=== PATIENT | female | born 1980 | race Caucasian/White ===

== ENCOUNTER 2022-06-02 19:46 | Emergency (ER) | payer OTHER, SELFPAY ==
--- NOTE | ~2022-06-02 | XR_ITS ---
EXAMINATION: XR CHEST CLINICAL INFORMATION: Chest pain COMPARISON: None TECHNIQUE: Frontal view of the chest was obtained. FINDINGS: No significant abnormality is noted involving the heart, lungs, mediastinum, bony thorax or soft tissues. XR/XR chest 1V IMPRESSION: Unremarkable examination.
--- NOTE | ~2022-06-02 | US_ITS ---
EXAMINATION: US ABDOMEN LIMITED CLINICAL INFORMATION: Abdominal pain. COMPARISON: None TECHNIQUE: Real-time imaging of the right upper quadrant abdominal viscera. FINDINGS: Gallbladder is physiologically distended and contains a small amount of sludge near the fundus. No gallstones are seen. Gallbladder wall thickness is within normal limits. Common bile duct measures 0.4 cm in diameter. Sonographic Dai sign is reportedly negative. US/US abdomen limited IMPRESSION: Small amount of gallbladder sludge without additional acute findings.
--- NOTE | 2022-06-02 20:02 | ECG_ITS ---
Test Reason : ABD/CP Blood Pressure : / mmHG Vent. Rate : 102 BPM Atrial Rate : 102 BPM P-R Int : 142 ms QRS Dur : 078 ms QT Int : 372 ms P-R-T Axes : 023 014 024 degrees QTc Int : 484 ms Sinus tachycardia Otherwise normal ECG No previous ECGs available Referred By: Christina Boston Electronically Signed By:ROB POWELL MD
--- NOTE | 2022-06-02 20:04 | ED.CHESTPAIN ---
HPI - Chest Pain General Chief Complaint: General Medical Stated Complaint: chest pain Time Seen by Provider: 06/02/22 19:51 History of Present Illness HPI narrative: Patient is a 42-year-old female with a long history of alcohol and heroin abuse. Presents today with having chest tightness. It has been ongoing for the last month. Patient drinks 3-4 alcoholic beverages per day. In addition to using heroin on a daily basis. Patient injects of medications. Patient complaining agitation. The last time she used heroin was this afternoon. The last time she drank alcohol was just prior to arrival. Patient claims she drank 1-2 drinks today less than usual. Patient denies any coughing congestion upper respiratory symptoms. Patient is not suicidal not homicidal. Related Data Allergies Allergy/AdvReac Type Severity Reaction Status Date / Time amoxicillin [AMOXICILLIN] Allergy Unknown RASH Unverified 05/09/20 17:50 Review of Systems Review of Systems: Positive chest tightness Yes all other systems are reviewed and are negative PMFSH Past Medical History Attestation statement: The following information was validated with the patient. Social History Social History Alcohol intake: current Patient Tobacco Use Status: Current everyday Tobacco user Use of substances other than those prescribed or required for medical reasons: Yes Substance Use Type: Heroin Substance Use Frequency: Daily Advance Directives: No Advance Directives Information Provided: No Patient : No Physical Exam Vital Signs: Vital Signs: Last Vital Signs Temp 98.2 F 06/03/22 00:25 Pulse 88 06/03/22 00:25 Resp 10 L 06/03/22 00:25 BP 157/97 H 06/03/22 00:25 Pulse Ox 97 06/03/22 00:25 O2 Del Method 06/03/22 00:25 BMI result Body Mass Index 43.0 Appearance: Alert. Oriented X3. No acute distress. Eyes: Pupils equal, round and reactive to light. ENT: Pharynx normal. Neck: Normal inspection. Neck supple. No lymph nodes noted. No crepitus CVS: Normal heart rate and rhythm. Pulses normal. Normal S1 and S2 Respiratory: No respiratory distress. Breath sounds normal. No Wheezing. No rales Abdomen: Soft and nontender. No rigidity. No distention. good BS x4 Skin: Skin warm and dry. Normal skin color. Normal skin turgor. Extremities: No lower extremity edema. Neurovascular intact to all extremities. No Lacerations. No Rash Neuro: Oriented X 3. No motor deficit. No sensory deficit. Moving all extermities. No slurred speech MDM - Chest Pain MDM Narrative Medical decision making narrative: Patient's symptoms atypical for ACS. She is larger in size but is not diabetic no high blood pressure no high cholesterol not a smoker never had a heart attack. Patient symptom has been ongoing the troponin was negative. Her EKG showed a sinus pattern heart rate is 100 NE QRS QT within normal limits is no acute ST segment elevation. Patient is in no distress. Positive history of polysubstance abuse. Care team involved been giving patient advice on detox. Chest x-ray showed no pneumonia no pneumothorax. No risk factors for pulmonary emboli. Patient is in stable condition. Ultrasound showed no gross evidence cholecystitis. Patient has elevated LFTs likely related to fatty liver. Medical Records Data Attestation: I reviewed the patient's medical records. Lab Data Attestation: I reviewed the patient's lab results. Result diagrams: 06/02/22 22:00 06/02/22 22:00 Labs: Lab Results 06/02/22 06/02/22 06/02/22 Range/Units 21:02 21:19 21:19 WBC (4.8-10.8) X10*3/uL RBC (4.20-5.50) X10*6/uL Hgb (12.0-16.0) g/dl Hct (37.0-47.0) % MCV (80.0-98.0) fL MCH (27.0-33.0) pg MCHC (31.0-35.0) g/dl RDW (11.0-16.0) % Plt Count (160-400) X10*3/uL MPV (9.4-12.3) fL Immature Gran % (Auto) (0.0-0.4) % Neut % (Auto) (45-73) % Lymph % (Auto) (20-40) % [place] % (Auto) (2-11) % Eos % (Auto) (0-4) % Baso % (Auto) (0-2) % Lymph # (Auto) (1.2-4.9) X10*3/uL [place] # (Auto) (0.1-1.2) X10*3/uL Eos # (Auto) (0.0-0.4) X10*3/uL Baso # (Auto) (0.0-0.2) X10*3/uL Abs Immat Gran (auto) (0.00-0.03) X10*3/uL Absolute Neuts (auto) (2.0-8.3) x10*3/uL Absolute Nucleated RBC (0.0-0.012) X10*3/uL Nucleated RBC % (auto) (0.0-0.2) /100WBC Sodium (135-145) mmol/L Potassium (3.3-5.1) mmol/L Chloride (96-108) mmol/L Carbon Dioxide (22-29) mmol/L Anion Gap (12-20) BUN (9-16) mg/dL Creatinine (0.5-1.4) mg/dL Estim Creat Clear Calc Estimated GFR Random Glucose (60-115) mg/dL Calcium (8.4-10.2) mg/dL Total Bilirubin (0.0-1.0) mg/dL Direct Bilirubin (0.0-0.5) mg/dL AST (5-31) U/L ALT (0-31) U/L Alkaline Phosphatase (39-117) U/L Troponin I High Sens (<3.5-17.0) ng/L Total Protein (6.5-8.0) g/dL Albumin (3.5-5.0) g/dL Lipase (8-78) U/L Beta HCG, Quant mIU/mL Urine Color Dark Yellow Urine Appearance Cloudy Urine pH 7.5 (5.0-9.0) Ur Specific Rachel 1.025 (1.005-1.025) Urine Protein 30 (1+) H (Neg-Trace) mg/dL Urine Glucose (UA) Negative (Negative) mg/dL Urine Ketones Trace (Negative) mg/dL Urine Blood Negative (Negative) Urine Nitrite Negative (Negative) Ur Leukocyte Esterase Trace H (Negative) Urine RBC 3-5 H (0-2) /HPF Urine WBC 0-5 (0-5) /HPF Ur Squamous Epith Cells 11-20 (0-2) /HPF Urine Bacteria Trace (None Seen) Hyaline Casts 3-5 (0-2) /LPF Urine Opiates Screen POSITIVE H (Not Detect) Urine Fentanyl Screen POSITIVE H (Not Detect) Ur Barbiturates Screen Not Detected (Not Detect) Ur Phencyclidine Scrn Not Detected (Not Detect) Ur Amphetamines Screen Not Detected (Not Detect) U Benzodiazepines Scrn Not Detected (Not Detect) Urine Cocaine Screen Not Detected (Not Detect) U Marijuana (THC) Screen Not Detected (Not Detect) Ethyl Alcohol mg/dL COVID-19 ([facility]) Negative (Negative) COVID-19 Clin Com See Note 06/02/22 06/02/22 06/02/22 Range/Units 22:00 22:00 22:00 WBC 8.1 (4.8-10.8) X10*3/uL RBC 3.53 L (4.20-5.50) X10*6/uL Hgb 10.5 L (12.0-16.0) g/dl Hct 34.2 L (37.0-47.0) % MCV 96.9 (80.0-98.0) fL MCH 29.7 (27.0-33.0) pg MCHC 30.7 L (31.0-35.0) g/dl RDW 17.6 H (11.0-16.0) % Plt Count 381 (160-400) X10*3/uL MPV 9.8 (9.4-12.3) fL Immature Gran % (Auto) 0.2 (0.0-0.4) % Neut % (Auto) 82.2 H (45-73) % Lymph % (Auto) 10.5 L (20-40) % [place] % (Auto) 6.9 (2-11) % Eos % (Auto) 0.1 (0-4) % Baso % (Auto) 0.1 (0-2) % Lymph # (Auto) 0.9 L (1.2-4.9) X10*3/uL [place] # (Auto) 0.6 (0.1-1.2) X10*3/uL Eos # (Auto) 0.0 (0.0-0.4) X10*3/uL Baso # (Auto) 0.0 (0.0-0.2) X10*3/uL Abs Immat Gran (auto) 0.02 (0.00-0.03) X10*3/uL Absolute Neuts (auto) 6.6 (2.0-8.3) x10*3/uL Absolute Nucleated RBC 0.000 (0.0-0.012) X10*3/uL Nucleated RBC % (auto) 0.0 (0.0-0.2) /100WBC Sodium 136 (135-145) mmol/L Potassium 4.5 (3.3-5.1) mmol/L Chloride 95 L (96-108) mmol/L Carbon Dioxide 30 H (22-29) mmol/L Anion Gap 16 (12-20) BUN 3 L (9-16) mg/dL Creatinine 0.67 (0.5-1.4) mg/dL Estim Creat Clear Calc 152.8 Estimated GFR > 60 Random Glucose 115 (60-115) mg/dL Calcium 9.4 (8.4-10.2) mg/dL Total Bilirubin 0.9 (0.0-1.0) mg/dL Direct Bilirubin 0.4 (0.0-0.5) mg/dL AST 65 H (5-31) U/L ALT 36 H (0-31) U/L Alkaline Phosphatase 144 H (39-117) U/L Troponin I High Sens < 3.5 (<3.5-17.0) ng/L Total Protein 7.4 (6.5-8.0) g/dL Albumin 3.6 (3.5-5.0) g/dL Lipase 7 L (8-78) U/L Beta HCG, Quant < 2 mIU/mL Urine Color Urine Appearance Urine pH (5.0-9.0) Ur Specific Rachel (1.005-1.025) Urine Protein (Neg-Trace) mg/dL Urine Glucose (UA) (Negative) mg/dL Urine Ketones (Negative) mg/dL Urine Blood (Negative) Urine Nitrite (Negative) Ur Leukocyte Esterase (Negative) Urine RBC (0-2) /HPF Urine WBC (0-5) /HPF Ur Squamous Epith Cells (0-2) /HPF Urine Bacteria (None Seen) Hyaline Casts (0-2) /LPF Urine Opiates Screen (Not Detect) Urine Fentanyl Screen (Not Detect) Ur Barbiturates Screen (Not Detect) Ur Phencyclidine Scrn (Not Detect) Ur Amphetamines Screen (Not Detect) U Benzodiazepines Scrn (Not Detect) Urine Cocaine Screen (Not Detect) U Marijuana (THC) Screen (Not Detect) Ethyl Alcohol < 10 mg/dL COVID-19 ([facility]) (Negative) COVID-19 Clin Com Discharge Plan Discharge Clinical Impression: Chest pain, Substance abuse, Fatty liver Instructions: Chest Pain (ED), Polysubstance Abuse (ED) Additional Instructions: Please stop using recreational drugs. Closely follow-up with detox. Please follow-up with cardiology as well. Very small risk of ACS. Referrals: Amandeep Caal MD [Physician] -
[2022-06-02 20:14] VITALS: BP 135/105; BP 154/95; PULSE 116; PULSE 99; RESP 12; TEMP 36.7; O2SAT 98; O2SAT 99; BMI 43.0
[2022-06-02] MEDS: LORazepam 1 MG TABLET PO (20:21)
[2022-06-02 21:13] VITALS: BP 149/76; PULSE 96; RESP 18; TEMP 36.4; O2SAT 96
[2022-06-02 21:19] LABS: COVID-19 Test Negative (Negative)
[2022-06-02 21:25] LABS: Appearance Urine Cloudy; Color Urine Dark Yellow; Glucose Urine UA Negative (Negative); Leukocyte Esterase Urine Trace (Negative); Nitrite Urine Negative (Negative); PH 7.5 (5.0-9.0); Specific Gravity - Urine 1.025 (1.005-1.025); UMIC TRIGGER UACC YES; Urine Blood Negative (Negative); Urine Ketones Trace mg/dL (Negative); Urine Protein 30 (1+) mg/dL (Neg-Trace)
[2022-06-02 21:30] LABS: Bacteria Urine Trace (None Seen); WBC Urine 0-5 /HPF (0-5)
[2022-06-02 21:39] LABS: Amphetamine Screen Urine Not Detected (Not Detect); Barbiturates, Urine Not Detected (Not Detect); Benzodiazepines Screen Urine Not Detected (Not Detect); Cannabinoid Screen Urine Not Detected (Not Detect); Cocaine Screen Urine Not Detected (Not Detect); Fentanyl, urine POSITIVE (Not Detect); Opiate Screen Urine POSITIVE (Not Detect); Phencyclidine Screen Urine Not Detected (Not Detect)
[2022-06-02 22:07] LABS: MANUAL DIFF FLAG NO
[2022-06-02 22:12] LABS: Basophils Percent Auto 0.1 % (0-2); Eosinophils Percent Auto 0.1 % (0-4); Hematocrit 34.2 % (37.0-47.0); Hemoglobin 10.5 g/dl (12.0-16.0); Imm Gran Abs Auto 0.02 X10*3/uL (0.00-0.03); Imm Gran Pct Auto 0.2 % (0.0-0.4); Lymphocytes Absolute Auto 0.9 X10*3/uL (1.2-4.9); Lymphocytes Percent Auto 10.5 % (20-40); Mean Corpuscular HGB Conc 30.7 g/dl (31.0-35.0); Mean Corpuscular Hemoglobin 29.7 pg (27.0-33.0); Mean Corpuscular Volume 96.9 fL (80.0-98.0); Mean Platelet Volume 9.8 fL (9.4-12.3); Monocytes Absolute Auto 0.6 X10*3/uL (0.1-1.2); Monocytes Percent Auto 6.9 % (2-11); Neutrophils Absolute Auto 6.6 x10*3/uL (2.0-8.3); Neutrophils Percent Auto 82.2 % (45-73); Platelet Count 381 X10*3/uL (160-400); Red Blood Count 3.53 X10*6/uL (4.20-5.50); Red Cell Distribution Width 17.6 % (11.0-16.0); White Blood Count 8.1 X10*3/uL (4.8-10.8)
[2022-06-02 22:13] VITALS: BP 156/92; PULSE 101; RESP 18; TEMP 36.4; O2SAT 98
[2022-06-02 22:33] LABS: Alanine Aminotransferase 36 U/L (0-31); Albumin Level 3.6 g/dL (3.5-5.0); Alkaline Phosphatase 144 U/L (39-117); Anion Gap 16 (12-20); Aspartate Amino Transferase 65 U/L (5-31); Bilirubin Direct 0.4 mg/dL (0.0-0.5); Bilirubin Total 0.9 mg/dL (0.0-1.0); Blood Urea Nitrogen 3 mg/dL (9-16); Calcium 9.4 mg/dL (8.4-10.2); Carbon Dioxide 30 mmol/L (22-29); Chloride 95 mmol/L (96-108); Creatinine Clr Calc Pharmacy 152.8; Estimated Glomerular Filt Rate > 60; Ethanol < 10 mg/dL; Glucose Random 115 mg/dL (60-115); Lipase 7 U/L (8-78); Potassium 4.5 mmol/L (3.3-5.1); Sodium 136 mmol/L (135-145); Total Protein 7.4 g/dL (6.5-8.0)
[2022-06-02 22:42] LABS: HCG Quantitative < 2 mIU/mL
--- NOTE | 2022-06-02 23:11 | PC.NURSE ---
Pt aox4. Breaths are even and unlabored. RR 13. Sinus tach on monitor. HR 105. Abd soft and non tender. Minimal edema noted on lower extremities. Skin is warm pink and dry. No apparent distress noted. Pt reports chest pain, 6/10, that has improved a bit. Pt aware of plan of care. Will continue to monitor.
--- NOTE | 2022-06-03 00:03 | HO.SUDE ---
CARE team met with pt to complete a substance use disorder evaluation. Pt arrived to the ED with complaints of chest pain and has been medically cleared for discharge. Pt requested to speak with someone regarding her opiate use. This technical report writer met with the pt in the main ED room 22. She was alert and oriented and engaged easily. Pt reported that her only [facility] treatment history was a detox admission at [facility] five years ago. She reported that her experience was horrible and that she signed herself out after a few days. She has no history of MAT, recovery coaching, or outpatient programs. Pt reported that she has gradually reduced how much she is using, previously at 5 bundles daily and has been at 10-15 bags daily for 5 months. She is not interested in detox at this time but is receptive to presenting to the [facility] for a walk-in appointment to discuss treatment. Pt was given information for [facility] and her information will be sent to clinic staff for reference. ED attending physician updated re: consultation.
[2022-06-03 00:25] VITALS: BP 157/97; PULSE 88; RESP 10; TEMP 36.8; O2SAT 97
--- NOTE | 2022-06-03 01:15 | PC.NURSE ---
Pt sleeping. Breaths are even and unlabored with equal chest rises. Will continue to monitor.
[2022-06-03 01:21] LABS: Troponin-I High Sensitivity < 3.5 ng/L (<3.5-17.0)
--- NOTE | 2022-06-03 01:49 | PC.NURSE ---
Pt went to u/s dept.
[2022-06-03 02:46] VITALS: BP 151/68; PULSE 96; RESP 8; O2SAT 100
--- NOTE | 2022-06-03 03:05 | PC.NURSE ---
Pt aox4. Discharge instructions provided. Pt verbalize understanding.
== END 2022-06-03 04:45 | disposition home or self-care (01) ==
PROVIDERS: Emergency Provider Emergency Medicine Emergency Medical Services
DX: R07.89 Other chest pain (principal); F11.90 Opioid use, unspecified, uncomplicated; F17.210 Nicotine dependence, cigarettes, uncomplicated; Z71.6 Tobacco abuse counseling; Z20.822 Contact with and (suspected) exposure to COVID-19; Z79.899 Other long term (current) drug therapy
CPT/HCPCS: 36415; 71045; 76705; 80048; 80076; 80307; 81001; 82077; 83690; 84484; 84702; 85025; 87635; 93005; 99284; 99285

== ENCOUNTER 2022-08-05 18:21 | Emergency (ER) | payer OTHER, SELFPAY ==
[2022-08-05 19:22] VITALS: BP 141/92; PULSE 94; RESP 16; TEMP 36.7; O2SAT 97; BMI 37.1
--- NOTE | 2022-08-05 19:22 | ED_ITS ---
HPI - General Adult General Chief complaint: Extremity Problem <Dalila Saleem NP - Last Filed: 08/05/22 19:27> Stated complaint: numbness in hands and legs <Dalila Saleem NP - Last Filed: 08/05/22 19:27> Time Seen by Provider: 08/05/22 21:59 <Dalila Saleem NP - Last Filed: 08/05/22 19:27> Source: patient <Carlos A Rodriguez MD - Last Filed: 08/05/22 22:53> Mode of arrival: ambulatory <Carlos A Rodriguez MD - Last Filed: 08/05/22 22:53> Limitations: no limitations <Carlos A Rodriguez MD - Last Filed: 08/05/22 22:53> History of Present Illness HPI narrative: 42-year-old female who presents emergency department for evaluation of numbness in her hands and legs. Patient states that she has been having these symptoms for approximately 3 months with the beginning worse over the past month. She states that she has numbness from her mid thigh down to her feet bilaterally. She also states she has numbness in both hands. She states that her hands feel swollen and crampy as well. The patient states that she was drinking heavily (4-6 24 oz [employer] Hard lemonade per day) but stopped approximately 1 1/2 months ago. She states that despite stop being her alcohol use she continues to have progressive numbness. She states when she walks she cannot feel her feet she does feel slightly off balance. The patient states that she uses a bags of injectable heroin daily. She states she injects in her arms, hands, abdomen and thigh. She states that she has a decreased appetite and feels dehydrated all the time but does eat and drink. The patient had a gastric bypass surgery approximately use 10 years prior done at [facility] and does not take any vitamin supplements. <Carlos A Rodriguez MD - Last Filed: 08/05/22 22:53> Related Data Home medications: Previous Rx's Medication Instructions Recorded hydrochlorothiazide 25 mg tablet 25 mg PO QAM #30 tabs 06/03/22 <Dalila Saleem NP - Last Filed: 08/05/22 19:27> Allergies/adverse reactions: Allergies Allergy/AdvReac Type Severity Reaction Status Date / Time amoxicillin [AMOXICILLIN] Allergy Unknown RASH Unverified 05/09/20 17:50 <Dalila Saleem NP - Last Filed: 08/05/22 19:27> Review of Systems Review of Systems: Yes all other systems are reviewed and are negative <Carlos A Rodriguez MD - Last Filed: 08/05/22 22:53> [facility] Past Medical History [facility] Narrative: Past medical history: Alcohol use disorder (is stop drinking 1-1/2 months prior), injection heroin use daily (8 bags per day). Past surgical history: Gastric bypass Kayla-en-Y done at [facility] 10 years prior. Social history: She denies tobacco use. She denies alcohol use. She injects heroin in her arms, hands, abdomen and thighs, a bags daily. <Carlos A Rodriguez MD - Last Filed: 08/05/22 22:53> Social History Social History: Social History Alcohol intake: current Patient Tobacco Use Status: Current everyday Tobacco user Substance Use Type: Heroin Advance Directives: No Advance Directives Information Provided: No <Dalila Saleem NP - Last Filed: 08/05/22 19:27> Physical Exam ED Vital Signs: Vital Signs - 24 hr 08/05/22 19:22 Temperature 98.0 F Pulse Rate 94 Respiratory Rate 16 Blood Pressure 141/92 H Pulse Oximetry 97 Oxygen Delivery Method Room Air BMI result Body Mass Index 37.1 <Dalila Saleem NP - Last Filed: 08/05/22 19:27> Vital Signs - 24 hr 08/05/22 19:22 Temperature 98.0 F Pulse Rate 94 Respiratory Rate 16 Blood Pressure 141/92 H Pulse Oximetry 97 Oxygen Delivery Method Room Air BMI result Body Mass Index 37.1 <Carlos A Rodriguez MD - Last Filed: 08/05/22 22:53> Const Other: Awake, alert, female patient, pleasant, cooperative, does not appear to be in distress, elevated BMI 37.1 <Carlos A Rodriguez MD - Last Filed: 08/05/22 22:53> HENMT Head: Yes normal to inspection, Yes normocephalic and Yes atraumatic <Carlos A Rodriguez MD - Last Filed: 08/05/22 22:53> Ears: external ears normal <Carlos A Rodriguez MD - Last Filed: 08/05/22 22:53> General nose exam: Normal external nose present <Carlos A Rodriguez MD - Last Filed: 08/05/22 22:53> Face and sinus: Yes normal facial exam <Carlos A Rodriguez MD - Last Filed: 08/05/22 22:53> Mouth: Normal oral and palatal mucosa present <Carlos A Rodriguez MD - Last Filed: 08/05/22 22:53> Throat: Yes posterior oropharynx normal <Carlos A Rodriguez MD - Last Filed: 08/05/22 22:53> Eyes General: appearance normal, both eyes and all related structures <Carlos A Rodriguez MD - Last Filed: 08/05/22 22:53> Neck Neck: Yes normal visual inspection, Yes no lymphadenopathy, Yes trachea midline and Yes supple <Carlos A Rodriguez MD - Last Filed: 08/05/22 22:53> Chest Chest palpation & inspection: normal inspection of the chest and normal palpation of entire chest wall <Carlos A Rodriguez MD - Last Filed: 08/05/22 22:53> Resp Effort & Inspection: normal respiratory effort and able to speak in complete sentences <Carlos A Rodriguez MD - Last Filed: 08/05/22 22:53> Auscultation: clear to auscultation bilaterally <Carlos A Rodriguez MD - Last Filed: 08/05/22 22:53> Cardio Rate: regular rate <Carlos A Rodriguez MD - Last Filed: 08/05/22 22:53> Rhythm: regular rhythm <Carlos A Rodriguez MD - Last Filed: 08/05/22 22:53> Heart sounds: S1 normal heart sound present, S2 normal heart sound present and no murmurs <Carlos A Rodriguez MD - Last Filed: 08/05/22 22:53> GI Inspection: Yes normal to inspection <Carlos A Rodriguez MD - Last Filed: 08/05/22 22:53> Palpation (GI): Soft to palpation, nontender and no guarding <Carlos A Rodriguez MD - Last Filed: 08/05/22 22:53> Auscultation: normal bowel sounds <Carlos A Rodriguez MD - Last Filed: 08/05/22 22:53> General: Yes no CVA tenderness <Carlos A Rodriguez MD - Last Filed: 08/05/22 22:53> Back/Spine/Pelvis Back: no CVA tenderness <Carlos A Rodriguez MD - Last Filed: 08/05/22 22:53> Skin General skin exam: no rashes or lesions noted <Carlos A Rodriguez MD - Last Filed: 08/05/22 22:53> Neuro Other: Awake, alert, oriented x2, cranial nerves 2-12 intact, strength 5/5 symmetric, diminished light touch hand and mid thigh to feet bilaterally symmetric <Carlos A Rodriguez MD - Last Filed: 08/05/22 22:53> Extrem Other: Patient does have non edema of her hands and lower extremities <Carlos A Rodriguez MD - Last Filed: 08/05/22 22:53> Psych Appearance: grossly normal <Carlos A Rodriguez MD - Last Filed: 08/05/22 22:53> Speech and movement: Normal speech and movement present <Carlos A Rodriguez MD - Last Filed: 08/05/22 22:53> Affect: normal affect <Carlos A Rodriguez MD - Last Filed: 08/05/22 22:53> Attitude: cooperative <Carlos A Rodriguez MD - Last Filed: 08/05/22 22:53> Course Course Course Narrative: This is rapid medical exam. Deferred additional HPI, ROS, PE to primary provider. 42yr old female with history of alcohol use disorder (currently not drinking), heroin use (6 bags per day IV) here with numbness in bilateral thighs down to feet starting in the feet and going up to the thighs x 2 months now felt in both hands w/ diff ambulating. No fevers, chills, back or neck pain. Will check labs, UA, ur preg, covid/rsv/flu testing. VSS <Dalila Saleem NP - Last Filed: 08/05/22 19:27> This is rapid medical exam. Deferred additional HPI, ROS, PE to primary provider. 42yr old female with history of alcohol use disorder (currently not drinking), heroin use (6 bags per day IV) here with numbness in bilateral thighs down to feet starting in the feet and going up to the thighs x 2 months now felt in both hands w/ diff ambulating. No fevers, chills, back or neck pain. Will check labs, UA, ur preg, covid/rsv/flu testing. VSS 2239: Course: RME review. 42-year-old female who presents emergency department for evaluation of numbness in her hands and lower extremities from her mid thighs down her feet, symptoms have been present for approximately 3 months and have gotten worse over the past month. Patient does have a history of alcohol use disorder was drinking heavily but stopped drinking approximately 1-1/2 months prior with no improvement of her symptoms. Patient does have a history of heroin injection use, a bags per day-she injects in her hands, arms, abdomen and thighs sometimes her feet as well. Patient's vital signs did reveal an elevated blood pressure of 142/92 otherwise were unremarkable. Physical examination did reveal diminished light touch her hands and from her mid thighs down to her feet. Her neurologic exam was otherwise unremarkable Laboratory evaluation CBC revealed an elevated platelet count of [id number], normal MCV of 86. CMP was normal. COVID-19, flu and RSV were negative. Patient's presentation is consistent with peripheral neuropathy of unclear etiology, this could be related to her alcohol use disorder, malnutrition, vitamin deficiency. I did add a B12 and folate level to the patient's lab. The patient was advised to take a high dose vitamin therapy of thiamine, folate, B12 and magnesium. The patient was given numbers to PCPs and Neurology. Patient is not interested in getting help with her heroin use disorder at this time. She will be discharged home with intranasal Narcan. <Carlos A Rodriguez MD - Last Filed: 08/05/22 22:53> Medical Decision Making Lab Data Result Diagrams: : 08/05/22 20:08 12/14/22 20:08 <Dalila Saleem BUDGET ENGINEER - Last Filed: 08/05/22 19:27> Labs: Lab Results 08/05/22 08/05/22 08/05/22 Range/Units 20:08 20:08 20:08 WBC 10.7 (4.8-10.8) X10*3/uL RBC 4.41 D (4.20-5.50) X10*6/uL Hgb 11.4 L (12.0-16.0) g/dl Hct 38.0 (37.0-47.0) % MCV 86.2 (80.0-98.0) fL MCH 25.9 L (27.0-33.0) pg MCHC 30.0 L (31.0-35.0) g/dl RDW 16.9 H (11.0-16.0) % Plt Count 448 H (160-400) X10*3/uL MPV 10.5 (9.4-12.3) fL Immature Gran % (Auto) 0.4 (0.0-0.4) % Neut % (Auto) 81.9 H (45-73) % Lymph % (Auto) 11.2 L (20-40) % [place] % (Auto) 6.2 (2-11) % Eos % (Auto) 0.1 (0-4) % Baso % (Auto) 0.2 (0-2) % Lymph # (Auto) 1.2 (1.2-4.9) X10*3/uL [place] # (Auto) 0.7 (0.1-1.2) X10*3/uL Eos # (Auto) 0.0 (0.0-0.4) X10*3/uL Baso # (Auto) 0.0 (0.0-0.2) X10*3/uL Abs Immat Gran (auto) 0.04 H (0.00-0.03) X10*3/uL Absolute Neuts (auto) 8.8 H (2.0-8.3) x10*3/uL Absolute Nucleated RBC 0.000 (0.0-0.012) X10*3/uL Nucleated RBC % (auto) 0.0 (0.0-0.2) /100WBC PT 12.1 (10.0-13.1) SEC INR 1.1 (0.9-1.1) Sodium (135-145) mmol/L Potassium (3.3-5.1) mmol/L Chloride (96-108) mmol/L Carbon Dioxide (22-29) mmol/L Anion Gap (12-20) BUN (9-16) mg/dL Creatinine (0.5-1.4) mg/dL Estim Creat Clear Calc Estimated GFR Random Glucose (60-115) mg/dL Calcium (8.4-10.2) mg/dL Magnesium (1.6-2.6) mg/dL Total Bilirubin (0.0-1.0) mg/dL Direct Bilirubin (0.0-0.5) mg/dL AST (5-31) U/L ALT (0-31) U/L Alkaline Phosphatase (39-117) U/L Total Protein (6.5-8.0) g/dL Albumin (3.5-5.0) g/dL Ethyl Alcohol mg/dL Influenza Type A (PCR) NEGATIVE (Negative) Influenza Type B (PCR) NEGATIVE (Negative) RSV RNA Qual (PCR) NEGATIVE (Negative) SARS-CoV-2 RNA (RT-PCR) NEGATIVE (Negative) 08/05/22 Range/Units 20:08 WBC (4.8-10.8) X10*3/uL RBC (4.20-5.50) X10*6/uL Hgb (12.0-16.0) g/dl Hct (37.0-47.0) % MCV (80.0-98.0) fL MCH (27.0-33.0) pg MCHC (31.0-35.0) g/dl RDW (11.0-16.0) % Plt Count (160-400) X10*3/uL MPV (9.4-12.3) fL Immature Gran % (Auto) (0.0-0.4) % Neut % (Auto) (45-73) % Lymph % (Auto) (20-40) % [place] % (Auto) (2-11) % Eos % (Auto) (0-4) % Baso % (Auto) (0-2) % Lymph # (Auto) (1.2-4.9) X10*3/uL [place] # (Auto) (0.1-1.2) X10*3/uL Eos # (Auto) (0.0-0.4) X10*3/uL Baso # (Auto) (0.0-0.2) X10*3/uL Abs Immat Gran (auto) (0.00-0.03) X10*3/uL Absolute Neuts (auto) (2.0-8.3) x10*3/uL Absolute Nucleated RBC (0.0-0.012) X10*3/uL Nucleated RBC % (auto) (0.0-0.2) /100WBC PT (10.0-13.1) SEC INR (0.9-1.1) Sodium 139 (135-145) mmol/L Potassium 4.8 (3.3-5.1) mmol/L Chloride 101 (96-108) mmol/L Carbon Dioxide 28 (22-29) mmol/L Anion Gap 15 (12-20) BUN 10 (9-16) mg/dL Creatinine 0.63 (0.5-1.4) mg/dL Estim Creat Clear Calc 144.8 Estimated GFR > 60 Random Glucose 97 (60-115) mg/dL Calcium 9.9 (8.4-10.2) mg/dL Magnesium 2.0 (1.6-2.6) mg/dL Total Bilirubin 0.7 (0.0-1.0) mg/dL Direct Bilirubin 0.3 (0.0-0.5) mg/dL AST 36 H (5-31) U/L ALT 24 (0-31) U/L Alkaline Phosphatase 76 (39-117) U/L Total Protein 7.9 (6.5-8.0) g/dL Albumin 4.1 (3.5-5.0) g/dL Ethyl Alcohol < 10 mg/dL Influenza Type A (PCR) (Negative) Influenza Type B (PCR) (Negative) RSV RNA Qual (PCR) (Negative) SARS-CoV-2 RNA (RT-PCR) (Negative) <Dalila Saleem NP - Last Filed: 08/05/22 19:27> Lab Results 08/05/22 08/05/22 08/05/22 Range/Units 20:08 20:08 20:08 WBC 10.7 (4.8-10.8) X10*3/uL RBC 4.41 D (4.20-5.50) X10*6/uL Hgb 11.4 L (12.0-16.0) g/dl Hct 38.0 (37.0-47.0) % MCV 86.2 (80.0-98.0) fL MCH 25.9 L (27.0-33.0) pg MCHC 30.0 L (31.0-35.0) g/dl RDW 16.9 H (11.0-16.0) % Plt Count 448 H (160-400) X10*3/uL MPV 10.5 (9.4-12.3) fL Immature Gran % (Auto) 0.4 (0.0-0.4) % Neut % (Auto) 81.9 H (45-73) % Lymph % (Auto) 11.2 L (20-40) % [place] % (Auto) 6.2 (2-11) % Eos % (Auto) 0.1 (0-4) % Baso % (Auto) 0.2 (0-2) % Lymph # (Auto) 1.2 (1.2-4.9) X10*3/uL [place] # (Auto) 0.7 (0.1-1.2) X10*3/uL Eos # (Auto) 0.0 (0.0-0.4) X10*3/uL Baso # (Auto) 0.0 (0.0-0.2) X10*3/uL Abs Immat Gran (auto) 0.04 H (0.00-0.03) X10*3/uL Absolute Neuts (auto) 8.8 H (2.0-8.3) x10*3/uL Absolute Nucleated RBC 0.000 (0.0-0.012) X10*3/uL Nucleated RBC % (auto) 0.0 (0.0-0.2) /100WBC PT 12.1 (10.0-13.1) SEC INR 1.1 (0.9-1.1) Sodium (135-145) mmol/L Potassium (3.3-5.1) mmol/L Chloride (96-108) mmol/L Carbon Dioxide (22-29) mmol/L Anion Gap (12-20) BUN (9-16) mg/dL Creatinine (0.5-1.4) mg/dL Estim Creat Clear Calc Estimated GFR Random Glucose (60-115) mg/dL Calcium (8.4-10.2) mg/dL Magnesium (1.6-2.6) mg/dL Total Bilirubin (0.0-1.0) mg/dL Direct Bilirubin (0.0-0.5) mg/dL AST (5-31) U/L ALT (0-31) U/L Alkaline Phosphatase (39-117) U/L Total Protein (6.5-8.0) g/dL Albumin (3.5-5.0) g/dL Ethyl Alcohol mg/dL Influenza Type A (PCR) NEGATIVE (Negative) Influenza Type B (PCR) NEGATIVE (Negative) RSV RNA Qual (PCR) NEGATIVE (Negative) SARS-CoV-2 RNA (RT-PCR) NEGATIVE (Negative) 08/05/22 Range/Units 20:08 WBC (4.8-10.8) X10*3/uL RBC (4.20-5.50) X10*6/uL Hgb (12.0-16.0) g/dl Hct (37.0-47.0) % MCV (80.0-98.0) fL MCH (27.0-33.0) pg MCHC (31.0-35.0) g/dl RDW (11.0-16.0) % Plt Count (160-400) X10*3/uL MPV (9.4-12.3) fL Immature Gran % (Auto) (0.0-0.4) % Neut % (Auto) (45-73) % Lymph % (Auto) (20-40) % [place] % (Auto) (2-11) % Eos % (Auto) (0-4) % Baso % (Auto) (0-2) % Lymph # (Auto) (1.2-4.9) X10*3/uL [place] # (Auto) (0.1-1.2) X10*3/uL Eos # (Auto) (0.0-0.4) X10*3/uL Baso # (Auto) (0.0-0.2) X10*3/uL Abs Immat Gran (auto) (0.00-0.03) X10*3/uL Absolute Neuts (auto) (2.0-8.3) x10*3/uL Absolute Nucleated RBC (0.0-0.012) X10*3/uL Nucleated RBC % (auto) (0.0-0.2) /100WBC PT (10.0-13.1) SEC INR (0.9-1.1) Sodium 139 (135-145) mmol/L Potassium 4.8 (3.3-5.1) mmol/L Chloride 101 (96-108) mmol/L Carbon Dioxide 28 (22-29) mmol/L Anion Gap 15 (12-20) BUN 10 (9-16) mg/dL Creatinine 0.63 (0.5-1.4) mg/dL Estim Creat Clear Calc 144.8 Estimated GFR > 60 Random Glucose 97 (60-115) mg/dL Calcium 9.9 (8.4-10.2) mg/dL Magnesium 2.0 (1.6-2.6) mg/dL Total Bilirubin 0.7 (0.0-1.0) mg/dL Direct Bilirubin 0.3 (0.0-0.5) mg/dL AST 36 H (5-31) U/L ALT 24 (0-31) U/L Alkaline Phosphatase 76 (39-117) U/L Total Protein 7.9 (6.5-8.0) g/dL Albumin 4.1 (3.5-5.0) g/dL Ethyl Alcohol < 10 mg/dL Influenza Type A (PCR) (Negative) Influenza Type B (PCR) (Negative) RSV RNA Qual (PCR) (Negative) SARS-CoV-2 RNA (RT-PCR) (Negative) <Carlos A Rodriguez MD - Last Filed: 08/05/22 22:53> Discharge Plan Discharge Clinical Impression: Peripheral neuropathy, Heroin use disorder, severe <Dalila Saleem NP - Last Filed: 08/05/22 19:27> Patient Disposition: Home, Self-Care <Dalila Saleem NP - Last Filed: 08/05/22 19:27> Instructions: Peripheral Neuropathy (ED) <Dalila Saleem NP - Last Filed: 08/05/22 19:27> Additional Instructions: I added a B12 and folate level to your blood work. You should check these results on the patient portal. If your B12 level is low then you will need to get injections of B12 otherwise you can take B12 orally. I want you to take high doses of thiamine, folate, B12 and magnesium to see if this improves your symptoms. Ask the pharmacist to help you pick vitamins I gave you phone numbers for primary care providers and for the Neurology group, try to get a primary care provider and see if neurology will follow you up to further determine the cause of your peripheral neuropathy. You should consider getting help with your heroin use disorder. Your are being discharged home with intranasal Narcan. If you are going to continue to use heroin, you should make sure that there is a sober person with you that is not using drugs and that this person can administer intranasal Narcan in the event that you stop breathing. Follow-up with your doctor in 2 days. Please return to the emergency department if your symptoms get worse or if you develop any symptoms that are concerning to you. <Dalila Saleem, BOBY - Last Filed: 08/05/22 19:27> Prescriptions: No Action hydrochlorothiazide 25 mg tablet 25 mg PO QAM Qty: 30 0RF <Dalila Saleem NP - Last Filed: 08/05/22 19:27>
[2022-08-05 20:14] LABS: Basophils Percent Auto 0.2 % (0-2); Eosinophils Percent Auto 0.1 % (0-4); Hemoglobin 11.4 g/dl (12.0-16.0); Imm Gran Abs Auto 0.04 X10*3/uL (0.00-0.03); Imm Gran Pct Auto 0.4 % (0.0-0.4); Lymphocytes Absolute Auto 1.2 X10*3/uL (1.2-4.9); Lymphocytes Percent Auto 11.2 % (20-40); MANUAL DIFF FLAG NO; Mean Corpuscular Hemoglobin 25.9 pg (27.0-33.0); Mean Corpuscular Volume 86.2 fL (80.0-98.0); Mean Platelet Volume 10.5 fL (9.4-12.3); Monocytes Absolute Auto 0.7 X10*3/uL (0.1-1.2); Monocytes Percent Auto 6.2 % (2-11); Neutrophils Absolute Auto 8.8 x10*3/uL (2.0-8.3); Neutrophils Percent Auto 81.9 % (45-73); Platelet Count 448 X10*3/uL (160-400); Red Blood Count 4.41 X10*6/uL (4.20-5.50); Red Cell Distribution Width 16.9 % (11.0-16.0); White Blood Count 10.7 X10*3/uL (4.8-10.8)
[2022-08-05 20:20] LABS: INTERNATIONAL NORM RATIO 1.1 (0.9-1.1); Prothrombin Time 12.1 SEC (10.0-13.1)
[2022-08-05 20:34] LABS: Alanine Aminotransferase 24 U/L (0-31); Albumin Level 4.1 g/dL (3.5-5.0); Alkaline Phosphatase 76 U/L (39-117); Anion Gap 15 (12-20); Aspartate Amino Transferase 36 U/L (5-31); Bilirubin Direct 0.3 mg/dL (0.0-0.5); Bilirubin Total 0.7 mg/dL (0.0-1.0); Blood Urea Nitrogen 10 mg/dL (9-16); Calcium 9.9 mg/dL (8.4-10.2); Carbon Dioxide 28 mmol/L (22-29); Chloride 101 mmol/L (96-108); Creatinine Clr Calc Pharmacy 144.8; Estimated Glomerular Filt Rate > 60; Ethanol < 10 mg/dL; Glucose Random 97 mg/dL (60-115); Potassium 4.8 mmol/L (3.3-5.1); Sodium 139 mmol/L (135-145); Total Protein 7.9 g/dL (6.5-8.0)
[2022-08-05 20:50] LABS: Influenza A PCR NEGATIVE (Negative); Influenza B PCR NEGATIVE (Negative); Resp Syncy Virus RNA Qual PCR NEGATIVE (Negative); SARS COV2 PCR INHOUSE NEGATIVE (Negative)
[2022-08-05 22:10] VITALS: BP 129/81; PULSE 88; RESP 18; O2SAT 98
[2022-08-05] MEDS: Naloxone HCl Nasal TAKE HOME 4 MG SPRAY NOSTRILALT (23:01)
[2022-08-06 09:52] LABS: Folate 6.8 ng/mL (> or = 4.0); Vitamin B12 716 pg/mL (200-900)
== END 2022-08-05 23:08 | disposition home or self-care (01) ==
PROVIDERS: Nurse Practitioner Family; Emergency Provider Emergency Medicine Emergency Medical Services
DX: G62.9 Polyneuropathy, unspecified (principal); F11.10 Opioid abuse, uncomplicated; Z20.822 Contact with and (suspected) exposure to COVID-19; F17.200 Nicotine dependence, unspecified, uncomplicated
CPT/HCPCS: 0241U; 36415; 80048; 80076; 82077; 82607; 82746; 83735; 85025; 85610; 99283

== ENCOUNTER 2023-01-22 14:13 | Outpatient (REF) | payer MEDICAID, SELFPAY ==
[2023-01-22 17:19] LABS: MANUAL DIFF FLAG NO
[2023-01-22 17:34] LABS: Basophils Percent Auto 0.2 % (0-2); Eosinophils Percent Auto 0.1 % (0-4); Hematocrit 34.9 % (37.0-47.0); Hemoglobin 10.3 g/dl (12.0-16.0); Imm Gran Abs Auto 0.03 X10*3/uL (0.00-0.03); Imm Gran Pct Auto 0.3 % (0.0-0.4); Lymphocytes Absolute Auto 1.2 X10*3/uL (1.2-4.9); Lymphocytes Percent Auto 13.3 % (20-40); Mean Corpuscular HGB Conc 29.5 g/dl (31.0-35.0); Mean Corpuscular Hemoglobin 23.5 pg (27.0-33.0); Mean Corpuscular Volume 79.5 fL (80.0-98.0); Mean Platelet Volume 12.6 fL (9.4-12.3); Monocytes Absolute Auto 0.4 X10*3/uL (0.1-1.2); Monocytes Percent Auto 4.2 % (2-11); Neutrophils Absolute Auto 7.4 x10*3/uL (2.0-8.3); Neutrophils Percent Auto 81.9 % (45-73); Platelet Count 248 X10*3/uL (160-400); Red Blood Count 4.39 X10*6/uL (4.20-5.50); Red Cell Distribution Width 15.6 % (11.0-16.0)
[2023-01-22 17:46] LABS: Alanine Aminotransferase 24 U/L (0-31); Alkaline Phosphatase 64 U/L (39-117); Anion Gap 14 (12-20); Aspartate Amino Transferase 27 U/L (5-31); Bilirubin Total 0.7 mg/dL (0.0-1.0); Blood Urea Nitrogen 9 mg/dL (9-16); C Reactive Protein 2.06 mg/dL (< or = 0.50); Calcium 9.5 mg/dL (8.4-10.2); Carbon Dioxide 24 mmol/L (22-29); Chloride 103 mmol/L (96-108); Cholesterol 224 mg/dL; Estimated Glomerular Filt Rate > 60; Glucose Fasting 93 mg/dL (60-99); HDL Cholesterol 73 mg/dL; LDL Cholesterol Calculated 128 mg/dl; Potassium 4.3 mmol/L (3.3-5.1); Sodium 137 mmol/L (135-145); Total Protein 7.8 g/dL (6.5-8.0); Triglycerides 119 mg/dL
[2023-01-22 18:02] LABS: Thyroid Stimulating Hormone 0.69 uIU/mL (0.32-4.0)
[2023-01-22 18:27] LABS: Erythrocyte Sedimentation Rate 46 MM/HR (0-20)
== END 2023-01-22 14:14 | disposition home or self-care (01) ==
LOC: HO.HMGCLDS 14:13
PROVIDERS: PCP Internal Medicine; Visit Provider Internal Medicine
DX: R53.83 Other fatigue (principal); E78.5 Hyperlipidemia, unspecified
CPT/HCPCS: 36415; 80053; 80061; 84439; 84443; 85025; 85652; 86140

== ENCOUNTER 2023-02-01 14:49 | Outpatient (REF) | payer MEDICAID, SELFPAY ==
[2023-02-01 17:16] LABS: Iron 34 mcg/dL (30-160); Percent Iron Saturation 7 % (15-50); Total Iron Binding Capacity 491 mcg/dL (228-428); Unsaturated Iron Binding 457 ug/dL
[2023-02-01 17:35] LABS: Erythrocyte Sedimentation Rate 34 MM/HR (0-20)
[2023-02-01 17:45] LABS: Ferritin 8 ng/mL (10-250); Folate 16.2 ng/mL (> or = 4.0); Vitamin B12 1774 pg/mL (200-900)
[2023-02-06 10:34] LABS: Anti Nuclear Antibody Screen NEGATIVE (NEGATIVE)
== END 2023-02-01 14:50 | disposition home or self-care (01) ==
LOC: HO.HMGCLDS 14:49
PROVIDERS: PCP Internal Medicine; Visit Provider Internal Medicine
DX: D64.9 Anemia, unspecified (principal)
CPT/HCPCS: 36415; 82607; 82728; 82746; 83540; 85652; 86038

== ENCOUNTER 2023-03-02 15:14 | Outpatient (REF) | payer MEDICAID, SELFPAY ==
[2023-03-02 16:33] LABS: Imm Gran Abs Auto 0.01 X10*3/uL (0.00-0.03); Imm Gran Pct Auto 0.2 % (0.0-0.4); MANUAL DIFF FLAG SCAN; PLT CLUMP 1; SCAN SMEAR FLAG 1
[2023-03-02 16:35] LABS: Basophils Absolute Auto 0.1 X10*3/uL (0.0-0.2); Basophils Percent Auto 0.8 % (0-2); Eosinophils Absolute Auto 0.2 X10*3/uL (0.0-0.4); Eosinophils Percent Auto 2.8 % (0-4); Hematocrit 37.5 % (37.0-47.0); Lymphocytes Absolute Auto 2.1 X10*3/uL (1.2-4.9); Mean Corpuscular HGB Conc 29.3 g/dl (31.0-35.0); Mean Corpuscular Hemoglobin 24.1 pg (27.0-33.0); Mean Corpuscular Volume 82.2 fL (80.0-98.0); Monocytes Absolute Auto 0.4 X10*3/uL (0.1-1.2); Monocytes Percent Auto 7.1 % (2-11); Neutrophils Absolute Auto 3.3 x10*3/uL (2.0-8.3); Neutrophils Percent Auto 54.1 % (45-73); Red Blood Count 4.56 X10*6/uL (4.20-5.50); Red Cell Distribution Width 18.5 % (11.0-16.0)
[2023-03-02 17:00] LABS: Platelet Count 199 X10*3/uL (160-400); SLIDE REVIEW VERIFIED; White Blood Count 6.1 X10*3/uL (4.8-10.8)
[2023-03-02 17:59] LABS: Iron 28 mcg/dL (30-160); Percent Iron Saturation 6 % (15-50); Total Iron Binding Capacity 446 mcg/dL (228-428); Unsaturated Iron Binding 418 ug/dL
[2023-03-02 18:19] LABS: Ferritin 12 ng/mL (10-250)
== END 2023-03-02 15:15 | disposition home or self-care (01) ==
LOC: HO.HMGCLDS 15:14
PROVIDERS: PCP Internal Medicine; Visit Provider Internal Medicine
DX: D64.9 Anemia, unspecified (principal); R53.83 Other fatigue
CPT/HCPCS: 36415; 82728; 83540; 85025